=== PATIENT | male | born 1955 | race Caucasian/White ===

== ENCOUNTER 2022-12-05 16:20 | Emergency (ER) | payer OTHER ==
[~2022-12-05] VITALS: Ht 172.7 cm; Wt 71.8 kg
[2022-12-05] MEDS ORDERED: MORPHINE 4 MG/ML 1ML VIAL IV ONE (17:10)
[2022-12-05 17:20] LABS: BASO # 0.1 10^3/uL (0.0-0.2); BASO % 0.9 % (0.0-1.0); EOS # 0.4 10^3/uL (0.0-0.5); EOS % 4.9 % (0.0-3.0); HEMATOCRIT 36.7 % (42.0-52.0); HEMOGLOBIN 12.5 g/dl (13.5-17.5); LYMPH # 0.8 10^3/uL (1.5-5.0); LYMPH % 10.4 % (24.0-44.0); MEAN CORPUSCULAR HGB CONC 34.1 g/dl (32.0-36.5); MEAN CORPUSCULAR VOLUME 88.2 fl (80.0-96.0); MONO # 0.8 10^3/uL (0.0-0.8); MONO % 9.9 % (2.0-8.0); NEUTROPHILS # 5.9 10^3/uL (1.5-8.5); NEUTROPHILS % 73.5 % (36.0-66.0); PLATELET COUNT, AUTOMATED 281 10^3/uL (150-450); RED BLOOD COUNT 4.16 10^6/uL (4.30-6.10)
[2022-12-05 17:49] LABS: BLOOD UREA NITROGEN 28 MG/DL (9-23); CALCIUM LEVEL 9.6 MG/DL (8.3-10.6); CARBON DIOXIDE LEVEL 26 MMOL/L (20-31); CHLORIDE LEVEL 100 MMOL/L (98-107); CREATININE FOR GFR 1.06 MG/DL (0.70-1.30); GLOMERULAR FILTRATION RATE > 60.0 (>49); GLUCOSE, FASTING 276 MG/DL (74-106); POTASSIUM SERUM 4.1 MMOL/L (3.5-5.1); SODIUM LEVEL 136 MMOL/L (136-145)
[2022-12-05] MEDS ORDERED: ISOVUE-370 76% 100ML VIAL As Ordered ONE (18:21)
[2022-12-05 19:30] VITALS: BP 164/88
== END 2022-12-05 21:49 | disposition home or self-care (01) ==
LOC: EDBD 16:20 → M ED 17:46
DX: S40.011A Contusion of right shoulder, initial encounter (principal); S40.012A Contusion of left shoulder, initial encounter; V49.40XA Driver injured in collision with unspecified motor vehicles in traffic accident, initial encounter; I10 Essential (primary) hypertension; E11.9 Type 2 diabetes mellitus without complications
CPT/HCPCS: 36415; 70450; 71260; 72125; 72128; 72131; 73030; 73552; 74177; 80048; 85025; 93041; 94760; 96374; 99285; J2270